=== PATIENT | male | born 1955 | race Asian ===

== ENCOUNTER 2024-02-16 05:10 | Day surgery (SDC) | payer OTHER, MEDICARE ==
[2024-02-13 10:45] VITALS: BMI 25.4
[2024-02-16 06:37] VITALS: RESP 18
[2024-02-16] MEDS ORDERED: MIDAZOLAM HCL 2 MG/2 ML SINGLE DOSE VIAL ONE (07:50)
[2024-02-16] MEDS ORDERED: PROPOFOL 20 ML ONE (07:53)
[2024-02-16 12:43] VITALS: BP 117/68; PULSE 56; TEMP 97.7
== END 2024-02-16 09:35 | disposition home or self-care (01) ==
LOC: JASU-SURG 05:10
PROVIDERS: ATTEND Urology
PROC: 0TF3XZZ Fragmentation in Right Kidney Pelvis, External Approach (ICD-10-PCS; principal; 2024-02-16 07:59)
DX: N20.0 Calculus of kidney (principal)

== ENCOUNTER 2024-03-15 04:09 | Day surgery (SDC) | payer OTHER, MEDICARE ==
[2024-03-11 17:14] VITALS: BMI 25.4
[2024-03-15] MEDS ORDERED: MIDAZOLAM HCL 2 MG/2 ML SINGLE DOSE VIAL ONE (09:19)
[2024-03-15 09:58] VITALS: RESP 18
[2024-03-15 10:52] VITALS: BP 129/77; PULSE 60; TEMP 96.8
== END 2024-03-15 10:45 | disposition home or self-care (01) ==
LOC: JASU-SURG 04:09
PROVIDERS: ATTEND Urology
PROC: 0TF3XZZ Fragmentation in Right Kidney Pelvis, External Approach (ICD-10-PCS; principal; 2024-03-15 09:26)
DX: N20.0 Calculus of kidney (principal)